=== PATIENT | male | born 1955 | race Caucasian/White ===

== ENCOUNTER 2017-07-07 09:31 | Emergency (ER) | payer OTHER ==
[2017-07-07 15:14] VITALS: BP 151/95
== END 2017-07-07 15:14 | disposition home or self-care (01) ==
LOC: ED 09:31
DX: S61.011A Laceration without foreign body of right thumb without damage to nail, initial encounter (principal); I10 Essential (primary) hypertension; W29.2XXA Contact with other powered household machinery, initial encounter; Y93.89 Activity, other specified; Y92.89 Other specified places as the place of occurrence of the external cause; Y99.8 Other external cause status
CPT/HCPCS: 90715; A4570; J0690; J2001; J3010; J3490; Q0092